=== PATIENT | male | born 2000 | race Caucasian/White ===

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

== ENCOUNTER → 2020-04-13 | Outpatient (CLI) | payer OTHER ==
--- NOTE | 2020-04-13 09:21 | RAD ---
ANKLE RIGHT 3V DATE: 04/13/2020 12:00 AM INDICATION: Reason: ANKLE PAIN AND NUMBNESS / Spl. Instructions: / History: COMPARISON: None. FINDINGS: Bones: There is no evidence of acute fracture or dislocation. Joints: The ankle mortise is congruent. No widening of the distal tibiofibular syndesmosis. Miscellaneous: None. IMPRESSION: No acute osseous abnormality. Electronically signed by: Srini Machuca MD (04/13/2020 9:19 AM) [id number]
== END ==
LOC: PMG 07:53
PROVIDERS: ATTEND Physician Assistant
DX: M25.571 Pain in right ankle and joints of right foot (principal)
CPT/HCPCS: 73610